=== PATIENT | male | born 1995 | race Caucasian/White ===

== ENCOUNTER 2016-05-31 10:18 | Emergency (ER) | payer MEDICAID ==
--- NOTE | 2016-05-31 11:02 | RAD ---
05/31/2016 10:58 AM CHEST - 2 VIEWS History: Cough since yesterday. Comparison: 09/24/2015 Findings: Two views of the chest are obtained. The lungs are clear with out effusion or pneumothorax. The cardiomediastinal silhouette is unremarkable.. The osseous structures are intact.. IMPRESSION: No acute intrathoracic process.
[2016-05-31] MEDS ORDERED: ACETAMINOPHEN 325 MG TABLET ONE (12:01)
[2016-05-31] MEDS ORDERED: IBUPROFEN 600 MG TABLET ONE (12:01)
== END 2016-05-31 12:11 | disposition home or self-care (01) ==
LOC: ED 10:18
DX: J09.X2 Influenza due to identified novel influenza A virus with other respiratory manifestations (principal); R50.9 Fever, unspecified
CPT/HCPCS: 71020; 87804; 99283 ×2; A9270 ×2